=== PATIENT | female | born 1995 | race Two or more races ===

== ENCOUNTER 2018-12-09 15:55 | Emergency (ER) | payer OTHER, BC ==
[~2018-12-09] VITALS: Ht 162.6 cm; Wt 83.3 kg
[2018-12-09] MEDS ORDERED: LIDOCAINE-MPF 1%, 5ML INFIL ONE (16:30)
[2018-12-09] MEDS ORDERED: ONDANSETRON ODT 4 MG PO ONE (16:30)
[2018-12-09] MEDS ORDERED: PLEASE ENTER HEIGHT AND WEIGHT MC SCH (16:30)
[2018-12-09] MEDS ORDERED: LIDOCAINE-MPF 1%, 5ML ONE (16:36)
[2018-12-09] MEDS ORDERED: OXYcodone/APAP 5/325MG TABLET PO ONE (17:00)
[2018-12-09] MEDS ORDERED: OXYcodone/APAP 5/325MG TABLET ONE (17:02)
[2018-12-09] MEDS ORDERED: ONDANSETRON ODT 4 MG ONE (17:02)
--- NOTE | 2018-12-09 17:10 | NUR ---
PT PRESENTS TO ED WITH C/O INCREASED REDNESS/SWELLING TO RIGHT ARM ABCESS, STARTED ON KEFLEX 2 DAYS AGO, UNASYN 1 DAY AGO. ERYTHEMA SURROUNDING ABCESS IS EXTENDING PAST DRAWN ON BORDER, DRAWN ON AT URGENT CARE YESTERDAY. PTS BLOOD GLUCOSE IS 193, TAKEN BY PT WITH HER OWN GLUCOMETER. PT MEDICATED PER EMAR, TOLERATED WELL. AWAITING US AND DISPO AT [facility] TIME.
[2018-12-09 18:32] LABS: BASOPHILS # (AUTO) 0.03 x10^3/uL (0-0.1); BASOPHILS % (AUTO) 0 % (0-1); EOSINOPHILS # (AUTO) 0.08 x10^3/uL (0-0.4); EOSINOPHILS % (AUTO) 1 % (1-7); LYMPHOCYTES # (AUTO) 2.42 x10^3/uL (1-3.4); LYMPHOCYTES % (AUTO) 17 % (22-44); MD NO; MEAN CORPUSCULAR HEMOGLOBIN 30.1 pg (27.0-34.8); MEAN CORPUSCULAR HGB CONC 34.2 g/dL (32.4-35.8); MEAN PLATELET VOLUME 9.2 fL (7.4-10.4); MONOCYTES # (AUTO) 1.04 x10^3/uL (0.2-0.8); MONOCYTES % (AUTO) 7 % (2-9); NEUTROPHILS # (AUTO) 10.65 x10^3/uL (1.8-6.8); NEUTROPHILS % (AUTO) 75 % (42-75); PLATELET COUNT 307 x10^3/uL (130-400); RED BLOOD COUNT 4.43 x10^6/uL (3.82-5.3); RED CELL DISTRIBUTION WIDTH 13.3 % (9.6-15.2)
[2018-12-09 18:42] LABS: ALANINE AMINOTRANSFERASE 15 U/L (12-78); ALBUMIN 2.8 g/dL (3.4-5.0); ANION GAP 6 mmol/L (5-15); CALCIUM 8.5 mg/dL (8.5-10.1); CHLORIDE 108 mmol/L (98-107); CREATININE 0.82 mg/dL (0.55-1.02)
[2018-12-09 18:44] LABS: ALKALINE PHOSPHATASE 105 U/L (45-117); BILIRUBIN,TOTAL 0.2 mg/dL (0.2-1.0); TOTAL PROTEIN 6.7 g/dL (6.4-8.2)
[2018-12-09 19:38] VITALS: BP 118/78
--- NOTE | 2018-12-09 19:45 | NUR ---
no I&D indicated per EDCHUCKIE Hogan. pt given dc instructions and script. pt edcuated regarding norco rx. pt amb to dc desk with steady gait, pt a&o, resps even and unlabored, nadn at dc.
== END 2018-12-09 19:46 | disposition home or self-care (01) ==
LOC: ED 18:34
DX: L03.113 Cellulitis of right upper limb (principal)
CPT/HCPCS: 36415; 76881; 80053; 85025; 99284; Q0162